=== PATIENT | female | born 1985 | race Hispanic/Latino ===

== ENCOUNTER 2018-07-22 00:52 | Inpatient (IN) | payer SELFPAY ==
[2018-07-22] MEDS ORDERED: Mag-Al 1200 mg/1200 mg/30 ML UDCUP ONE (01:24)
[2018-07-22] MEDS ORDERED: Ketorolac Tromethamine 30 MG/ML VIAL ONE ×2 (01:24→15:37)
[2018-07-22] MEDS ORDERED: Ondansetron PF 4 MG/2 ML Vial ONE ×2 (01:24→15:37)
[2018-07-22] MEDS ORDERED: Lidocaine Viscous Sol 2% 15 ml UD Cup ONE (01:24)
[2018-07-22 01:34] LABS: #Lymphocytes 2.8 thou/uL (1.20-3.40); #Monocytes 0.6 thou/uL (0.11-0.59); %Basophils 0.1 % (0.0-1.0); %Eosinophils 0.3 % (0.0-10.0); %Lymphocytes 24.3 % (21.0-51.0); %Monocytes 5.4 % (0.0-10.0); %Neutrophils 69.9 % (42.0-75.0); Mean Corpuscular Hemoglobin 25.4 pg (27.0-31.0); Mean Corpuscular Volume 79.2 fL (78.0-98.0); Mean Platelet Volume 6.9 fL (7.4-10.4); Platelet Count 387 thou/uL (130-400); RBC Distribution Width 14.1 % (11.5-14.5); Red Blood Cell (RBC) Count 5.12 mill/uL (4.20-5.40); White Blood Cell (WBC) Count 11.4 thou/uL (4.8-10.8)
[2018-07-22 01:39] LABS: BHCG - Serum Negative (NEGATIVE); Pregs Control Background? CLEAR/WHITE (CLR/WHITE); Pregs Control Bar Appear? YES (CONTROL BAR)
[2018-07-22 01:54] LABS: ALT (SGPT) 65 U/L (8-55); AST (SGOT) 122 U/L (5-34); Albumin 3.8 g/dL (3.5-5.0); Alkaline Phosphatase 101 U/L (40-150); Anion Gap 14 mmol/L (10-20); BUN (Urea Nitrogen) 8 mg/dL (7.0-18.7); Bilirubin, Total 0.5 mg/dL (0.2-1.2); Calc. Creatinine Clearance 0 mL/min (70-130); Calcium 9.1 mg/dL (7.8-10.44); Carbon Dioxide 25 mmol/L (22-29); Chloride 103 mmol/L (98-107); Estimated GFR-MDRD Greater than 90; Globulin 3.8 g/dL (2.4-3.5); Glucose 199 mg/dL (70-105); Lipase 24 U/L (8-78); Potassium 3.7 mmol/L (3.5-5.1); Protein, Total 7.6 g/dL (6.0-8.3); Sodium 138 mmol/L (136-145)
[2018-07-22 02:15] LABS: Bilirubin Negative (Negative); Blood, Urine Negative (Negative); Clarity CLOUDY (Clear); Glucose, Urine (Dipstick) 250 mg/dL (Negative); Leukocyte Moderate (Negative); Nitrite Negative (Negative); Protein, Urine (Dipstick) Negative (Neg-Trace); Specific Gravity, Urine 1.014 (1.002-1.036); pH, Urine 6.5 (5.0-9.0)
[2018-07-22 02:17] LABS: Bacteria/HPF 1+ HPF (None Seen); Hyaline Casts/LPF 0-3 HYALINE CAST LPF (0-3 Hyaline); Pathc Cast-AUWi Flag 0.43 (0-2.49); WBC/HPF 21-50 HPF (0-3)
[2018-07-22 02:20] LABS: RBC/HPF 0-3 HPF (0-3)
[2018-07-22] MEDS ORDERED: Morphine 4 MG/ML VIAL ONE (05:18)
[2018-07-22] MEDS ORDERED: Ondansetron PF 4 MG/2 ML Vial IVP PRN (06:03)
[2018-07-22] MEDS ORDERED: hydrALAZINE 20 MG/ML VIAL SLOW IVP PRN (06:03)
[2018-07-22] MEDS ORDERED: Ondansetron ODT 4 MG TAB PO PRN (06:03)
[2018-07-22] MEDS ORDERED: Ketorolac Tromethamine 30 MG/ML VIAL IVP PRN (06:06)
[2018-07-22 06:13] VITALS: BMI 37.8
[2018-07-22] MEDS ORDERED: Lactated Ringer's 1,000 ML IV SCH (06:15)
[2018-07-22] MEDS ORDERED: Morphine 4 MG/ML VIAL SLOW IVP PRN (06:17)
--- NOTE | 2018-07-22 06:30 | HP ---
HISTORY OF PRESENT ILLNESS: Samaria De La Vega is a 32-year-old female with 3 years of epigastric pain, back radiation, nausea, having a severe episode, presented to the emergency room. Ultrasound documenting gallstones with normal bile duct caliber. Her white count is 11 and hemoglobin is 13. Liver function tests essentially normal. Bilirubin 0.5, AST 122, and ALT 65. test negative. PAST MEDICAL HISTORY: Noncontributory. PAST SURGICAL HISTORY: Noncontributory. ALLERGIES: NONE. SOCIAL HISTORY: Tobacco, none. Alcohol, none. MEDICATIONS: None. REVIEW OF SYSTEMS: Ten-point noncontributory. PHYSICAL EXAMINATION: VITAL SIGNS: Blood pressure 134/72, heart rate 76, and respiratory rate 18. HEAD, EARS, EYES, NOSE, AND THROAT: Unremarkable. Sclerae are nonicteric. SKIN: Nonjaundiced. LUNGS: Clear to auscultation. CARDIAC: Regular rate and rhythm without murmur or gallop. ABDOMEN: Soft. Mild tenderness in the epigastrium and right upper quadrant. Mild guarding. EXTREMITIES: Unremarkable. ASSESSMENT AND PLAN: Symptomatic cholelithiasis, cholecystitis, chronic. Recommend laparoscopic video cholecystectomy. Risks of infection, bleeding, visceral and biliary injury, open procedure discussed. She consents. Job ID: [id number]
--- NOTE | 2018-07-22 08:45 | ULT ---
PRELIMINARY REPORT/[facility]/EMERGENTY AFTER-HOURS PROCEDURE US Abdomen Limited, Right Upper Quadrant EXAM DATE/TIME: 07/22/2018 2:29 AM CLINICAL HISTORY: 32 years old, female; Pain; Abdominal pain; Acute TECHNIQUE: Real-time ultrasound of the abdomen with image documentation. Examination was focused on the right up per quadrant. COMPARISON: No relevant prior studies available. FINDINGS: Liver: Hepatic steatosis. Gallbladder: Cholelithiasis. No gallbladder wall thickening or pericholecystic fluid. Sonographic Mur phy sign reported as positive. Common bile duct: Normal. No stones. No dilation. Pancreas: Visualized pancreas is unremarkable. Right kidney: Normal. No mass. No hydronephrosis. IMPRESSION: Cholelithiasis. Despite reported positive sonographic Barber sign, there is no gallbladder wall thick ening or pericholecystic fluid to definitively indicate acute cholecystitis. Thank you for allowing us to participate in the care of your patient. Dictated and Authenticated by: Dillon Gordon MD 07/22/2018 3:02 AM Central Time ([place] & [place]) FINAL REPORT EMERGENCY AFTER HOURS RIGHT UPPER QUADRANT ULTRASOUND: Date: 07/22/18 IMPRESSION: I agree with the preliminary interpretation given by Sonia. Cholelithiasis with reported positive sono graphic Barber's sign. POS: KRYSTAL
[2018-07-22] MEDS ORDERED: Acetaminophen 1,000 MG in Premix Bag 1 BAG IVPB SCH (12:00)
[2018-07-22] MEDS ORDERED: Bupivacaine HCl 0.5%/Epinephrine 1:200,000/PF 30 ml Vial ONE (14:28)
[2018-07-22] MEDS ORDERED: Fentanyl 100 MCG/2 ML VIAL ONE ×2 (14:34→15:53)
[2018-07-22] MEDS ORDERED: Ondansetron HCl/PF 4 MG/2 ML Vial IVP PRN (15:07)
[2018-07-22] MEDS ORDERED: Promethazine HCl 25 MG/ML VIAL IM PRN (15:07)
[2018-07-22] MEDS ORDERED: Promethazine HCl 25 MG/ML VIAL SLOW IVP PRN (15:07)
[2018-07-22] MEDS ORDERED: Ibuprofen 600 MG TAB PO PRN (15:33)
[2018-07-22] MEDS ORDERED: traMADol HCl 50 MG TAB PO PRN (15:33)
[2018-07-22] MEDS ORDERED: Rocuronium Bromide 10 MG/ML (10ML VIAL) ONE (15:37)
[2018-07-22] MEDS ORDERED: Dexamethasone 20 MG/5 ML VIAL ONE (15:37)
[2018-07-22] MEDS ORDERED: PROPOFOL 200 MG/20 ML VIAL ONE (15:37)
[2018-07-22] MEDS ORDERED: Succinylcholine Chloride 20 MG/ML 10 ml SYRINGE FS ONE (15:37)
[2018-07-22] MEDS ORDERED: Glycopyrrolate 0.2 MG/ML 5 ML SYRINGE ONE (15:37)
--- NOTE | 2018-07-22 15:45 | OP ---
DATE OF PROCEDURE: 07/22/2018 PREOPERATIVE DIAGNOSES: 1. Acute cholecystitis. 2. Cholelithiasis. POSTOPERATIVE DIAGNOSES: 1. Acute cholecystitis. 2. Cholelithiasis. PROCEDURE PERFORMED: Laparoscopic video cholecystectomy. ANESTHESIA: General, local with 0.5% Marcaine with epinephrine 30 mL. DESCRIPTION OF PROCEDURE: The patient was taken to the operating room. Under general anesthesia, abdomen was prepared with ChloraPrep and draped in routine fashion. Local anesthetic was infiltrated in the skin and subcutaneous tissue about all port sites. An infraumbilical incision was made. Pneumoperitoneum to 15 mmHg obtained with a Veress needle, replaced with a 5 port, laparoscope was inserted. Right subxiphoid incision was made and 11 port placed, right subcostal incision was made, midclavicular and anterior axillary line, the 5 port was placed. Liver was fatty and engorged, but not cirrhotic. Fundus of the gallbladder was grasped at the cephalad. Infundibulum grasped and reflected laterally. Cystic artery and duct dissected free. Critical view obtained. Cystic artery and duct double clipped proximally and divided. Gallbladder dissected free from liver bed, obtaining good hemostasis prior to division of final peritoneal attachments. Gallbladder and contents removed, submitted to Pathology. Good hemostasis was ensured with the cautery. Irrigant and pneumoperitoneum evacuated. All instruments were removed. All skin incisions were approximated with interrupted subdermal 4-0 Monocryl and [place] glue applied. Job ID: [id number]
[2018-07-22] MEDS: traMADol HCl 50 MG TAB PO PRN ×2 (17:25→23:38)
[2018-07-22] MEDS: Ketorolac Tromethamine 30 MG/ML VIAL IVP PRN (20:38)
[2018-07-22] MEDS: Acetaminophen 500 MG TAB PO PRN (20:39)
[2018-07-22] MEDS ORDERED: Enoxaparin Sodium 40 MG/0.4 ML SYRINGE SC SCH (21:00)
[2018-07-23] MEDS: Ketorolac Tromethamine 30 MG/ML VIAL IVP PRN (03:29)
[2018-07-23 07:38] LABS: #Lymphocytes 1.5 thou/uL (1.20-3.40); #Monocytes 0.3 thou/uL (0.11-0.59); #Neutrophils 8.9 thou/uL (1.40-6.50); %Basophils 0.3 % (0.0-1.0); %Eosinophils 0.1 % (0.0-10.0); %Monocytes 3.1 % (0.0-10.0); %Neutrophils 82.4 % (42.0-75.0); Hemoglobin 13.7 g/dL (12.0-16.0); Mean Corpuscular HGB CONC 32.1 g/dL (32.0-36.0); Mean Corpuscular Volume 80.9 fL (78.0-98.0); Mean Platelet Volume 7.2 fL (7.4-10.4); Platelet Count 370 thou/uL (130-400); Red Blood Cell (RBC) Count 5.29 mill/uL (4.20-5.40); White Blood Cell (WBC) Count 10.8 thou/uL (4.8-10.8)
[2018-07-23 07:58] LABS: ALT (SGPT) 228 U/L (8-55); AST (SGOT) 180 U/L (5-34); Albumin 3.6 g/dL (3.5-5.0); Alkaline Phosphatase 121 U/L (40-150); Anion Gap 14 mmol/L (10-20); BUN (Urea Nitrogen) 9 mg/dL (7.0-18.7); Bilirubin, Total 0.5 mg/dL (0.2-1.2); Calc. Creatinine Clearance 196 mL/min (70-130); Calcium 9.2 mg/dL (7.8-10.44); Carbon Dioxide 25 mmol/L (22-29); Chloride 103 mmol/L (98-107); Estimated GFR-MDRD Greater than 90; Globulin 3.6 g/dL (2.4-3.5); Glucose 130 mg/dL (70-105); Protein, Total 7.2 g/dL (6.0-8.3); Sodium 138 mmol/L (136-145)
[2018-07-23] MEDS: Acetaminophen 500 MG TAB PO PRN (08:20)
[2018-07-23] MEDS: traMADol HCl 50 MG TAB PO PRN (08:20)
[2018-07-23 08:28] VITALS: BP 111/75; TEMP 98.3
--- NOTE | 2018-07-24 09:01 | DIS ---
DATE OF ADMISSION: 07/22/2018 DATE OF DISCHARGE: 07/23/2018 HOSPITAL COURSE: Ms. Wei is a 32-year-old female, admitted to the hospital with worsening epigastric and right upper quadrant pain, back radiation. She has had this pain for several years. She underwent ultrasound revealing gallstones without bile duct dilatation. Liver function tests were normal. She received intravenous antibiotics, fluids overnight, was taken to the operating room for laparoscopic cholecystectomy; after which, she was discharged home. Tylenol, Motrin, and Ultram p.r.n. pain. Follow up in my office in 2 to 3 weeks. Diet and activity as tolerated. No lifting restrictions. Job ID: [id number]
== END 2018-07-23 09:34 | disposition home or self-care (01) | DRG 419 ==
LOC: ERS 00:52 → SURG B 06:05
PROVIDERS: ADMIT Specialist; ATTEND Specialist
PROC: 0FT44ZZ Resection of Gallbladder, Percutaneous Endoscopic Approach (ICD-10-PCS; principal; 2018-07-22)
DX: K80.12 Calculus of gallbladder with acute and chronic cholecystitis without obstruction (principal); K76.0 Fatty (change of) liver, not elsewhere classified; E66.01 Morbid (severe) obesity due to excess calories; Z68.37 Body mass index [BMI] 37.0-37.9, adult
CPT/HCPCS: 36415; 76705; 80053; 81003; 81015; 83690; 84703; 85025; 88304; 90471; 90686; 93005; 96365; 96375; G0008; J0131; J0670; J1100; J1650; J1885; J1956; J2270; J2405; J2704; J3010

== ENCOUNTER 2020-05-18 17:36 | Emergency (ER) | payer BC ==
[2020-05-19 08:40] LABS: SARS-CoV-2 MS2 Positive; SARS-CoV-2 N Gene Negative; SARS-CoV-2 S Gene Negative; SARS-CoV-2 by NAA Not Detected (NotDetected); SARS-CoV-2 orf1ab Negative
== END 2020-05-18 17:55 | disposition home or self-care (01) ==
LOC: ERS 17:36
DX: M54.6 Pain in thoracic spine (principal); R51.9 Headache, unspecified; Z20.828 Contact with and (suspected) exposure to other viral communicable diseases; E11.9 Type 2 diabetes mellitus without complications; Z79.84 Long term (current) use of oral hypoglycemic drugs
CPT/HCPCS: 87635; 99284; U0003

== ENCOUNTER 2021-07-03 15:45 | Emergency (ER) | payer BC ==
[~2021-07-03 15:45] MED LIST: Iopamidol-370 76% 500 ML 1 ML ONE
[2021-07-03] MEDS ORDERED: cefTRIAXone\\ROCEPHIN 500 MG VIAL ONE (17:09)
[2021-07-04 20:00] LABS: Chlam.trachomatis by PCR,Urine Not Detected (NotDetected)
== END 2021-07-03 17:28 | disposition home or self-care (01) ==
LOC: ERS 15:45
DX: N73.9 Female pelvic inflammatory disease, unspecified (principal); E11.9 Type 2 diabetes mellitus without complications; Z79.84 Long term (current) use of oral hypoglycemic drugs; Z79.899 Other long term (current) drug therapy
CPT/HCPCS: 74177; 87480; 87491; 87510; 87591; 87660; 96372; J0696; Q9967

== ENCOUNTER 2021-10-21 22:01 | Emergency (ER) | payer BC | END 2021-10-21 23:32 | disposition home or self-care (01) | LOC: ERS 22:01 | DX: B34.9 Viral infection, unspecified (principal); E11.9 Type 2 diabetes mellitus without complications | CPT/HCPCS: 93005 ==